=== PATIENT | female | born 1965 | race Caucasian/White ===

== ENCOUNTER 2020-09-10 14:22 | Outpatient (CLI) | payer OTHER, SELFPAY ==
--- NOTE | ~2020-09-10 | MM_ITS ---
EXAMINATION: MM screening spencer BI w roman HISTORY: Screening TECHNIQUE: Craniocaudal and mediolateral oblique 3-D tomosynthesis images were obtained and synthetic 2-D images were generated. CAD analysis was submitted and interpreted. COMPARISON: Comparison to multiple prior studies sequentially, with oldest reviewed study dated 08/03. BREAST PARENCHYMAL COMPOSITION: There are scattered areas of fibroglandular density. FINDINGS: There is no evidence of suspicious mass, calcification, or architectural distortion to sugg est malignancy in either breast. There has been no suspicious interval change. IMPRESSION: 1. No mammographic evidence of malignancy. 2. Recommend routine screening mammography in one year. BI-RADS Category 1: Negative Reviewed, dictated and finalized at location A. NISTRATIVE RECEPTIONIST
== END 2020-09-10 14:23 | disposition home or self-care (01) ==
PROVIDERS: PCP Internal Medicine; Visit Provider Obstetrics & Gynecology
DX: Z12.31 Encounter for screening mammogram for malignant neoplasm of breast (principal)
CPT/HCPCS: 77063; 77067

== ENCOUNTER → 2021-09-30 03:04 | Outpatient (CLI) | payer OTHER, SELFPAY ==
[2021-09-30 21:06] LABS: SARS-CoV-2 RNA PCR Negative
== END ==
PROVIDERS: PCP Internal Medicine; Visit Provider Nurse Practitioner Family
DX: R68.89 Other general symptoms and signs (principal); Z20.822 Contact with and (suspected) exposure to COVID-19
CPT/HCPCS: C9803; U0003; U0005

== ENCOUNTER 2022-07-21 12:26 | Outpatient (CLI) | payer OTHER, SELFPAY ==
--- NOTE | ~2022-07-21 | MM_ITS ---
EXAMINATION: MM screening spencer BI w roman HISTORY: Screening TECHNIQUE: Craniocaudal and mediolateral oblique 3-D tomosynthesis images were obtained and synthetic 2-D images were generated. CAD analysis was submitted and interpreted. COMPARISON: Comparison to multiple prior studies sequentially, with oldest reviewed study dated 08/03. BREAST PARENCHYMAL COMPOSITION: The breasts are almost entirely fatty. FINDINGS: There is no evidence of suspicious mass, calcification, or architectural distortion to sugg est malignancy in either breast. There has been no suspicious interval change. IMPRESSION: 1. No mammographic evidence of malignancy. 2. Recommend routine screening mammography in one year. BI-RADS Category 1: Negative Reviewed, dictated and finalized at location D.
== END 2022-07-21 12:27 | disposition home or self-care (01) ==
PROVIDERS: PCP Internal Medicine; Visit Provider Obstetrics & Gynecology
DX: Z12.31 Encounter for screening mammogram for malignant neoplasm of breast (principal)
CPT/HCPCS: 77063; 77067

== ENCOUNTER 2023-07-21 09:08 | Outpatient (CLI) | payer OTHER, SELFPAY | END 2023-07-21 09:09 | disposition home or self-care (01) | LOC: ANHGOSHLAB 09:10 | PROVIDERS: PCP Family Medicine; Visit Provider Nurse Practitioner | DX: R30.0 Dysuria (principal) | CPT/HCPCS: 87077; 87086; 87186 ==

== ENCOUNTER 2023-07-29 08:58 | Outpatient (CLI) | payer OTHER, SELFPAY ==
[2023-07-29 11:56] LABS: Alanine Aminotransferase 30 U/L (6-35); Albumin Level 4.4 g/dL (3.5-5.1); Alkaline Phosphatase 92 U/L (38-126); Anion Gap 7 mmol/L (8-16); Aspartate Amino Transferase 44 U/L (14-36); Bilirubin,Total 0.8 mg/dL (0.2-1.3); Blood Urea Nitrogen 16 mg/dL (7-17); Calcium 9.3 mg/dL (8.4-10.2); Carbon Dioxide 28 mmol/L (22-30); Chloride 105 mmol/L (98-107); Cholesterol 162 mg/dL (0-200); Estimated Glomerular Filt Rate > 60; Glucose 98 mg/dL (65-110); HDL Direct 48 mg/dL; Potassium 4.2 mmol/L (3.4-5.0); Sodium 140 mmol/L (137-145); Triglycerides 90 mg/dL (<150)
[2023-07-29 12:12] LABS: LDL Cholesterol Direct 89 mg/dL
[2023-07-29 12:23] LABS: Thyroid Stimulating Hormone 0.753 uIU/mL (0.465-4.680)
== END 2023-07-29 08:59 | disposition home or self-care (01) ==
LOC: ANHGOSHLAB 09:00
PROVIDERS: PCP Family Medicine; Visit Provider Family Medicine
DX: E66.9 Obesity, unspecified (principal); R73.03 Prediabetes; Z79.899 Other long term (current) drug therapy; Z23 Encounter for immunization
CPT/HCPCS: 36415; 80053; 80061; 83036; 84443

== ENCOUNTER 2023-12-12 09:48 | Outpatient (CLI) | payer OTHER, SELFPAY ==
[2023-12-12 10:42] LABS: Hematocrit 41.5 % (37.0-47.0); Hemoglobin 14.1 g/dL (12.0-15.0); Mean Corpuscular Hemoglobin 30.5 pg (26-34); Mean Corpuscular Volume 89.6 fl (80-100); Mean Platelet Volume 9.5 fl (7.4-10.4); Platelet Count Result 285 k/mm3 (150-375); Red Blood Count 4.63 M/mm3 (4.2-5.4); Red Cell Distribution Width 12.2 % (11.5-14.5); White Blood Count 6.4 K/mm3 (4.5-10.0)
[2023-12-12 19:55] LABS: Alanine Aminotransferase 20 U/L (6-35); Albumin Level 4.4 g/dL (3.5-5.1); Alkaline Phosphatase 86 U/L (38-126); Anion Gap 5 mmol/L (8-16); Aspartate Amino Transferase 56 U/L (14-36); Bilirubin,Total 0.6 mg/dL (0.2-1.3); Blood Urea Nitrogen 19 mg/dL (7-17); Calcium 9.6 mg/dL (8.4-10.2); Carbon Dioxide 28 mmol/L (22-30); Chloride 104 mmol/L (98-107); Cholesterol 143 mg/dL (0-200); Estimated Glomerular Filt Rate 57; Glucose 85 mg/dL (65-110); HDL Direct 47 mg/dL; Potassium 3.7 mmol/L (3.4-5.0); Sodium 137 mmol/L (137-145); Triglycerides 122 mg/dL (<150)
[2023-12-12 20:06] LABS: LDL Cholesterol Direct 79 mg/dL
== END 2023-12-12 09:49 | disposition home or self-care (01) ==
LOC: ANHGOSHLAB 09:50
PROVIDERS: PCP Family Medicine; Visit Provider Family Medicine
DX: E66.9 Obesity, unspecified (principal); E11.9 Type 2 diabetes mellitus without complications; E78.5 Hyperlipidemia, unspecified; Z79.899 Other long term (current) drug therapy
CPT/HCPCS: 36415; 80053; 80061; 83036; 84443; 85027

== ENCOUNTER 2023-12-30 22:00 | Emergency (ER) | payer OTHER, SELFPAY ==
--- NOTE | ~2023-12-30 | XR_ITS ---
XR hand LT min 3V DATE: 12/31/2023 02:15 INDICATION: Post reduction examination TECHNIQUE: 3 views COMPARISON: 12/30/2023 prereduction examination FINDINGS: There is approximately 29 degrees posterior angulation at the metaphyseal fracture of the p roximal phalanx of the fifth digit, without significant displacement. No other fracture or dislocation. IMPRESSION: Fracture of metaphysis of proximal phalanx of fifth digit Reviewed, dictated and finalized at location A.
--- NOTE | ~2023-12-30 | CT_ITS ---
EXAMINATION: CT cervical spine wo con DATE: 12/30/2023 22:50 INDICATION: fall TECHNIQUE: Computed tomography (CT) of the cervical spine was performed without intravenous contrast. Automated exposure control and iterative reconstruction technique were employed. The dose-length pro duct was 398.57 mGy-cm. COMPARISON: None. FINDINGS: Vertebral Body Alignment: Focal kyphosis centered at C5-6. Trace anterolistheses at C2 3-4 and C4-5, presumably on a degenerative basis. Craniocervical and atlantoaxial alignment: Moderate degenerative change. Alignment intact. Osseous structures/fracture: No evidence of a lytic or blastic process in the visualized spine. No e vidence of acute fracture. Chronic appearing height loss at C5-C7. Cervical soft tissues: The paraspinal soft tissues planes are maintained. Degenerative changes: Multilevel degenerative disc disease, moderate at C5-6. Multilevel severe facet arthropathy. No severe central canal or neural foraminal narrowing. IMPRESSION: No acute fracture or traumatic malalignment in the cervical spine. Reviewed, dictated and finalized at location K.
--- NOTE | ~2023-12-30 | CT_ITS ---
EXAMINATION: CT facial bones wo con DATE: 12/30/2023 22:50 INDICATION: glf . TECHNIQUE: Computed tomography (CT) of the facial bones and maxillofacial region was performed withou t intravenous contrast. Automated exposure control and iterative reconstruction technique were employ ed. The dose-length product was 349.97 mGy-cm. COMPARISON: None. FINDINGS: Soft Tissues: No significant superficial soft tissue swelling. Facial bones: No acute fracture. No lytic or blastic process. Eyes: The globes are intact. The soft tissue planes of the orbits are maintained. Paranasal Sinuses: Minimal right posterior ethmoid opacification, mild mucosal thickening in the inf erior left maxillary sinus, the remaining aerated spaces are clear. Foreign Bodies: No radiopaque foreign bodies. Other Findings: Enlarged bilateral parotid lymph nodes. Dental implants. IMPRESSION: No evidence of acute facial bone fracture. Bilateral parotid gland lymphadenopathy. Reviewed, dictated and finalized at location K.
--- NOTE | ~2023-12-30 | XR_ITS ---
EXAM: XR knee LT 3V DATE: 12/30/2023 22:35 HISTORY: fall . COMPARISON: None available. FINDINGS: Slightly decreased mineralization. No fracture or dislocation. No lytic or blastic lesion. Mild tricompartmental arthritis. Quadriceps enthesopathy. No erosion or periosteal change. Soft tiss ues within normal limits. IMPRESSION: No acute osseous finding in the left knee. Reviewed, dictated and finalized at location K.
--- NOTE | ~2023-12-30 | CT_ITS ---
EXAMINATION: CT brain wo con DATE: 12/30/2023 22:50 INDICATION: fall . TECHNIQUE: Computed tomography (CT) of the head was performed without intravenous contrast. The mA wa s adjusted according to patient size. Iterative reconstruction technique was employed. The dose-lengt h product was 756.67 mGy-cm. COMPARISON: None. FINDINGS: No acute intracranial hemorrhage or extra-axial fluid collection. No hydrocephalus, mass, or herniation. No acute ischemic infarct. Unremarkable dural venous sinus attenuation. No acute osseous abnormality. Minimal right posterior ethmoid sinus opacification, the remaining aerated spaces are clear. Mild atherosclerotic intracranial calcification. Enlarged bilateral parotid lymph nodes, the parotid glands are otherwise normal in appearance. IMPRESSION: No acute intracranial process. Bilateral parotid lymphadenopathy. Reviewed, dictated and finalized at location K.
--- NOTE | ~2023-12-30 | XR_ITS ---
EXAM: XR hand LT min 3V DATE: 12/30/2023 22:35 HISTORY: fall . COMPARISON: None available. FINDINGS: Normal mineralization. Comminuted, intra-articular fracture of the base of the left fifth proximal phalange, with 35 degrees posterior angulation. No lytic or blastic lesion. Joint spaces are maintained. No erosion or periosteal change. Soft tissues within normal limits. IMPRESSION: Comminuted, intra-articular, posteriorly angulated fracture of the base of the left fifth proximal phalange. Reviewed, dictated and finalized at location K.
[2023-12-30 22:07] VITALS: BP 123/75; PULSE 79; RESP 18; TEMP 36.2; O2SAT 100
--- NOTE | 2023-12-30 22:38 | PC.NURSE ---
vrbo ct facial bones with cspine per erp wilder vega
--- NOTE | 2023-12-30 23:15 | ED.FALL ---
HPI - Fall General Chief Complaint: Fall Stated Complaint: fall Time Seen by Provider: 12/30/23 23:05 Source: patient and family () Mode of arrival: ambulatory Limitations: no limitations History of Present Illness HPI Narrative: Patient fell after running into a screen door and now complaining pain. The worst part of her pain is her left hand she also was complaining left knee pain left forehead pain where she had an abrasion. Last tetanus shot <6 mos ago. No loss of consciousness and is not on anticoagulation. She notes that her multiple fingers hyperextended. Related Data Home Medications Medication Instructions Recorded Confirmed dextroamphetamine-amphetamine ER 20 mg PO DAILY 10/29/22 12/16/23 20 mg 24hr capsule,extend release (Adderall XR) vilazodone 20 mg tablet 20 mg PO DAILY 10/29/22 12/16/23 zolpidem 5 mg tablet 5 mg PO QHS PRN 10/29/22 12/16/23 Allergies Allergy/AdvReac Type Severity Reaction Status Date / Time No Known Allergies Allergy Verified 12/30/23 22:00 COUNTS INCLUDE 234 BEDS AT THE [facility] Past Medical History Medical History (Updated 01/01/24 @ 09:16 by Thania Zambrano MD) Right hand dominant Family History Family History Sibling Hypertension Family history of diabetes mellitus in first degree relative Acute myocardial infarction Mother Family history of malignant neoplasm Father Family history of emphysema Alcoholism Other Family history of cardiovascular disease Social History Social History Smoking status: Never smoker Alcohol intake: current Alcohol use details: rare Substance use: never Substance use type: does not use Lack of Transportation: No Lack of Food: Never True Current Housing: I Have Housing Concerned About Future Housing: No Difficulty Paying Gas/Electric Bills: No Difficulty Paying for Meds: No Currently Unemployed: No Education: Bachelor's Degree Difficulty w/ Childcare or Family Care: No Living arrangements: with family Occupation/Education: occupation Gender identity (if verbalized by the patient): Female Agree to blood products: Yes Exam Narrative: GENERAL: Well-appearing, well-nourished, and in no acute distress. HEAD: Normocephalic; abrasion to left forehead, bleeding well controlled EYES: Non injected, non icteric ENT: Nares clear, no rhinorrhea or epistaxis. NECK: Supple. CHEST: Speaking in complete sentences. No respiratory distress. HEART: Regular rate and rhythm. . ABDOMEN: Soft, nondistended. EXTREMITIES: Some edema in left hand; ecchymosis throughout left hand and at base of left 5th digit. Unable to assess capillary refill in nail beds given false nails but brisky refill in the pads of all fingers. Normal tenodesis. Able to demonstrate some flexion and extension though not full fist. SKIN: Warm, dry, no rash. NEURO: No focal deficits. Alert and oriented x3. Sensation intact throughout wrist/hand. PSYCH: Normal mood and affect. Course Vital Signs Vital signs: Vital Signs Temperature 97.1 F L 12/30/23 22:07 Pulse Rate 79 12/30/23 22:07 Respiratory Rate 18 12/30/23 22:07 Blood Pressure 123/75 12/30/23 22:07 Pulse Oximetry 100 12/30/23 22:07 Temperature 98.1 F 12/31/23 03:26 Pulse Rate 67 12/31/23 03:26 Respiratory Rate 15 12/31/23 03:26 Blood Pressure 132/67 12/31/23 03:26 Pulse Oximetry 97 12/31/23 03:26 Procedures Nerve Block Nerve Block 1: Nerve block date: 12/31/23 Local Anesthetic: lidocaine 1% Amount of anesthesia used (mL): 10 Side: left Nerve Blocks: digital (5th digit) Procedure Successful: Yes Patient Tolerated Procedure: well and no complications Complications: none Additional Comments: No pain with procedure Orthopedic Fracture Reduction Fracture #1: Fracture Reducti
[2023-12-31] MEDS: HYDROcodone/acetaminophen (*CRX) 5-325 MG TABLET 1 TAB PO
[2023-12-31] MEDS: ACETAMINOPHEN 325 MG TABLET 650 MG PO (00:01)
[2023-12-31] MEDS: LIDOCAINE HCL 1% LOCAL INJ 10 ML VIAL INFILTRATE (02:39)
[2023-12-31 03:26] VITALS: BP 132/67; PULSE 67; RESP 15; TEMP 36.7; O2SAT 97
== END 2023-12-31 03:27 | disposition home or self-care (01) ==
LOC: ANHED 12-31 01:09
PROVIDERS: Emergency Provider Student in an Organized Health Care Education/Training Program; PCP Family Medicine
DX: S62.617A Displaced fracture of proximal phalanx of left little finger, initial encounter for closed fracture (principal); E04.1 Nontoxic single thyroid nodule; S89.92XA Unspecified injury of left lower leg, initial encounter; S00.81XA Abrasion of other part of head, initial encounter; W22.8XXA Striking against or struck by other objects, initial encounter
CPT/HCPCS: 26725; 70450; 70486; 72125; 73130; 73562; 99285; A4565; A9270

== ENCOUNTER 2024-01-05 08:27 | Outpatient (CLI) | payer OTHER, SELFPAY ==
--- NOTE | ~2024-01-05 | US_ITS ---
EXAMINATION: US thyroid DATE: 01/05/2024 08:42 INDICATION: Nontoxic single thyroid nodule TECHNIQUE: Multiple ultrasound images of the thyroid were obtained. COMPARISON: None. FINDINGS: The right thyroid lobe measures 5.0 x 2.0 x 1.5 cm. The left thyroid lobe measures 5.4 x 1.4 x 1.6 c m. Solid isoechoic 1.4 cm nodule which is wider than tall, with smooth to ill-defined margins and wi thout echogenic foci in the right thyroid. (TI-RADS 3, mildly suspicious , FNA if >=2.5 cm, annual fo llowup is >=1.5 cm). Slightly larger 2.2 cm TI RADS 3 nodule with similar imaging features the inferi or left thyroid. 1.0 cm wider than tall solid hypoechoic nodule with smooth margins at the left side of the thyroid isthmus (TI-RADS 4, moderately suspicious , FNA if >=1.5 cm, annual followup is >=1 cm ). There are a few additional scattered bilateral subcentimeter nodules. IMPRESSION: 1. Multinodular goiter with no nodules meeting criteria for biopsy but a couple for which annual ultr asound follow-up would be recommended.. Reviewed, dictated and finalized at location A. IMPRESSION: 1. Multinodular goiter with no nodules meeting criteria for biopsy but a couple for which annual ultrasound follow-up would be recommended..
== END 2024-01-05 08:28 ==
PROVIDERS: PCP Family Medicine; Visit Provider Family Medicine
DX: E04.2 Nontoxic multinodular goiter (principal)
CPT/HCPCS: 76536

== ENCOUNTER 2024-04-10 11:03 | Outpatient (CLI) | payer BC, SELFPAY ==
[2024-04-10 13:05] LABS: Hematocrit 44.9 % (37.0-47.0); Hemoglobin 15.3 g/dL (12.0-15.0); Mean Corpuscular HGB Conc 34.1 g/dl (32-36); Mean Corpuscular Hemoglobin 31.1 pg (26-34); Mean Corpuscular Volume 91.3 fl (80-100); Mean Platelet Volume 9.7 fl (7.4-10.4); Platelet Count Result 291 k/mm3 (150-375); Red Blood Count 4.92 M/mm3 (4.2-5.4); Red Cell Distribution Width 11.9 % (11.5-14.5); White Blood Count 8.6 K/mm3 (4.5-10.0)
[2024-04-10 13:21] LABS: Alanine Aminotransferase 23 U/L (6-35); Albumin Level 4.6 g/dL (3.5-5.1); Alkaline Phosphatase 74 U/L (38-126); Anion Gap 11 mmol/L (4-12); Aspartate Amino Transferase 55 U/L (14-36); Bilirubin,Total 0.8 mg/dL (0.2-1.3); Blood Urea Nitrogen 15 mg/dL (7-17); Calcium 9.6 mg/dL (8.4-10.2); Carbon Dioxide 26 mmol/L (22-30); Chloride 103 mmol/L (98-107); Cholesterol 181 mg/dL (0-200); Estimated Glomerular Filt Rate > 60; Glucose 97 mg/dL (65-110); HDL Direct 53 mg/dL; Potassium 4.5 mmol/L (3.4-5.0); Sodium 140 mmol/L (137-145); Triglycerides 145 mg/dL (<150)
[2024-04-10 13:37] LABS: LDL Cholesterol Direct 103 mg/dL
[2024-04-10 13:44] LABS: Thyroid Stimulating Hormone 0.529 uIU/mL (0.465-4.680)
[2024-04-11 18:22] LABS: Hemoglobin A1C 4.9 % (<5.7)
== END 2024-04-10 11:04 | disposition home or self-care (01) ==
LOC: ANHGOSHLAB 11:04
PROVIDERS: PCP Family Medicine; Visit Provider Family Medicine
DX: E11.9 Type 2 diabetes mellitus without complications (principal); E78.5 Hyperlipidemia, unspecified; Z79.899 Other long term (current) drug therapy
CPT/HCPCS: 36415; 80053; 80061; 83036; 84443; 85027

== ENCOUNTER 2024-12-06 09:33 | Outpatient (CLI) | payer BC, SELFPAY ==
--- OUTSIDE RECORDS SUMMARY | 2024-12-06 10:31 | XMS_ITS | Clinical Summary ---
Author Organization [facility] Address [address] [place] [address] Phone Care Team Providers Care Weld Technician Name Role Phone Scooter Mcmahon MD Primary Care Provider Allergies Active Allergy Reactions Criticality Noted Date Comments Tramadol Headache Low 09/30/2015 Medications ibuprofen (MOTRIN) 800 mg tablet Take 1 Tab by mouth every 6 hours as needed for Pain, Mild. 50 Tab 0 09/25/20 13 Active venlafaxine (EFFEXOR) 75 mg tablet 2 times daily . 08/22/20 15 Active LORazepam (ATIVAN) 1 mg tablet PRN. 08/15/20 15 Active buPROPion HCl (WELLBUTRIN XL) 300 mg Extended Release 24 hour tablet 08/31/20 15 Active omeprazole (PRILOSEC) 20 mg Capsule, Delayed Release(E.C.) Take 20 mg by mouth daily. Active tirzepatide (Mounjaro) 12.5 mg/0.5 mL Pen Injector Inject 12.5 mg by subcutaneous injection every 7 days. 6 mL 4 5:26 PM GLASS ETCHER HELPER 11/04/19 24 Active vilazodone (VIIBRYD) 20 mg Tablet Take 20 mg by mouth daily. Active atorvastatin (LIPITOR) 10 mg tablet Take 10 mg by mouth daily with supper. Active zolpidem (AMBIEN) 5 mg tablet Take 5 mg by mouth nightly as needed for Insomnia. Active amphetamine-d extroamphetam ine (ADDERALL XR) 20 mg Extended Release 24 hour capsule Take 20 mg by mouth daily in the morning. Active vit86/iron/fo lic acid (NUTRI-TAB OB ORAL) Take by mouth daily. Active tirzepatide (Mounjaro) 10 mg/0.5 mL Pen Injector Inject 10 mg (0.5 mL) subcutaneously once weekly. 2 mL 4 4:25 PM CDT 01/05/20 24 Active HYDROcodone-a cetaminophen (NORCO) 5-325 mg tabletIndicat ions:H/O hand surgery Take 1 Tablet by mouth every 6 hours as needed for moderate pain. Max Daily Amount: 4 Tablets 5 Tablet 4 9:57 AM CDT 01/06/20 24 Active amphetamine-d extroamphetam ine (ADDERALL XR) 20 mg Extended Release 24 hour capsule Take 1 Capsule (20 mg) by mouth daily. Max Daily Amount: 20 mg 30 Capsule 03/22/20 24 Active tirzepatide (Mounjaro) 12.5 mg/0.5 mL Pen Injector Inject 12.5 mg (0.5 mL) subcutaneously weekly 2 mL 1 4 5:26 PM CDT 03/22/20 24 Active tirzepatide (Mounjaro) 15 mg/0.5 mL Pen Injector Inject 15 mg by subcutaneous injection every 7 days. 6 mL 1 4 5:44 PM CDT 06/21/20 24 Active tirzepatide (Mounjaro) 12.5 mg/0.5 mL Pen Injector Inject 12.5 mg (0.5 mL) subcutaneously weekly 6 mL 1 4 5:23 PM CDT 07/26/20 24 Active tirzepatide (Mounjaro) 12.5 mg/0.5 mL Pen Injector Inject 0.5 mL (12.5 mg) by subcutaneous injection every 7 days. 6 mL 1 4 3:11 PM GLASS ETCHER HELPER 08/23/20 24 Active tirzepatide (Mounjaro) 12.5 mg/0.5 mL Pen Injector Inject 0.5 mL (12.5 mg) by subcutaneous injection every 7 days. 6 mL 1 4 12:08 PM GLASS ETCHER HELPER 09/18/20 24 Active tirzepatide (Mounjaro) 12.5 mg/0.5 mL Pen Injector Inject 0.5 mL (12.5 mg) by subcutaneous injection every 7 days. 6 mL 2 5 9:57 AM GLASS ETCHER HELPER 12/03/19 25 Active tirzepatide (Mounjaro) 12.5 mg/0.5 mL Pen Injector Inject 0.5 mL (12.5 mg) by subcutaneous injection every 7 days. 6 mL 1 11:40 AM GLASS ETCHER HELPER 11/02/19 25 2024 Discontinued Active Problems Problem Noted Date Diagnosed Date Triquetral chip fracture 05/05/2017 Ganglion cyst of wrist 09/04/2015 Ganglion cyst of flexor tend on sheath of finger of right hand 09/04/2015 Scar condition and fibrosis of skin 10/31/2013 Breast ptosis 07/11/2013 Other plastic surgery for unacceptable cosmetic appearance 07/11/2013 Encounters Date Type Department Care Team Description 12/04/2024 External Device Data [facility]CTION Provider, Abstract 11/20/2024 External Device Data [facility] Provider, Abstract 10/24/2024 External Device Data [facility] Provider, Abstract 10/23/2024 External Device Data [facility] Provider, Abstract 10/09/2024 External Device Data [facility] Provider, Abstract from Last 3 Months Social History Tobacco Use Types Packs/Day Years Used Date Smoking Tobacco: Never Smokeless Tobacco: Never Tobacco Cessation:Counseling Given: Not Answered Alcohol Use Standard Drinks/Week Comments Yes 0 (1 standard drink = 0.6 oz pur e alcohol) RARE Feeling Safe Answer Date Recorded Are you in a relationship wi th someone who hurts you emotionally and/or physically? Patient unable to answer 01/06/2024 Food Insecurity Answer Date Recorded Social/Environmental Concerns No concerns Transportation Needs Answer Date Record ed Social/Environmental Concerns No concerns Housing Stability Answer Date Recorded Social/Environmental Concerns No concerns Utility Needs Answer Date Recorded Social/Environmental Concerns No concerns Comments No Sex and Gender Information Value Date Recorded Sex Assigned at Not on file Legal Sex Female 11:34 AM CDT Gender Identity Not on file Sexual Orientation Not on file Occupation Industry Job Start Date Job End Date Not on file Not on file Not on file Not on file Last Filed Vital Signs Vital Sign Reading Time Taken Comments Blood Pressure 108/70 01/06/2024 9:11 AM CDT Pulse 71 01/06/2024 9:11 AM CDT Temperature 36.1 C (97 F) 01/06/2024 9:11 AM CDT Respiratory Rate 16 01/06/2024 9:11 AM CDT Oxygen Saturation 100% 01/06/2024 9:11 AM CDT Inhaled Oxygen Concentration - - Weight 79.4 kg (175 lb) 02/02/2024 3:45 PM CDT Height 170.2 cm (5' 7 ) 02/02/2024 3:45 PM CDT Body Mass Index 27.41 02/02/2024 3:45 PM CDT Plan of Treatment Health Maintenance Due Date Last Done Comments Pre-Diabetes and Diabetes Screening 1966 DTAP/TDAP/TD VACCINES (1 - Tdap) 1985 HEPATITIS B VACCINES (1 of 3 - 19+ 3-dose series) 1985 CERVICAL CANCER SCREENING 1996 BREAST CANCER SCREENING 2006 COLORECTAL SCREENING 2011 Colorectal Cancer Screening 2011 FIT-DNA Q 3 years 2011 FIT/FOBT Q 1 year 2011 Flex Sig/CT Colonography Q 5 years 2011 ZOSTER VACCINE (1 of 2) 2016 INFLUENZA VACCINE (#1) 2024 PNEUMOCOCCAL VACCINE 0-49 YEARS Aged Out No longer eligible based on patient's age to complete this topic Medical Devices Implanted Type Area Gamer Device Identifier Shelf Expiration Date Model / Serial / Lot Wire K Trocar Sgl [id number] - [id number] Implanted:Qty: 2 on 01/06/2024 by Crispin Phan MD at [facility] Wire Left: Finger [employer] [facility] [id number] / / 2 JAN 03, 2024 Top Let [employer] Insurance BCBS BLUE ACCESS/TRUE BLUE PPO RX [employer] Commercial Advance Directives For more information, please contact: [phone] * Full Code (Latest Code Status on File) Date Activated Date Inactivated Comments 09/09/2015 10:24 AM 09/09/2015 5:57 PM * Full Code Date Activated Date Inactivated Comments 08/17/2013 12:29 PM 08/18/2013 2:06 PM * Full Code Date Activated Date Inactivated Comments 08/17/2013 8:08 AM 08/17/2013 12:29 PM * Full Code Date Activated Date Inactivated Comments 08/17/2013 6:24 AM 08/17/2013 8:08 AM Care Teams Weld Technician Relationship Specialty Start Date End Date Scooter Mcmahon MD PCP - General Internal Medicine 05/05/17
--- OUTSIDE RECORDS SUMMARY | 2024-12-06 10:31 | XMS_ITS | Encounter Summary ---
Author Organization [employer] [facility] Address [address] [place] [address] Care Team Providers Care Lieutenant Fire Fighter Name Role Phone Scooter Mcmahon MD Primary Care Provider Encounter Details Date Type Department Care Team (Late st Contact Info) Description 12/04/2024 External Device Data [facility] Provider, Abstract NO ADDRESS ON FILE Social History Tobacco Use Types Packs/Day Years Used Date Smoking Tobacco: Never Smokeless Tobacco: Never Alcohol Use Standard Drinks/Week Comments Yes 0 [...] file Not on file Not on file documented as of this encounter Plan of Treatment Not on file documented as of this encounter Visit Diagnoses Not on filedocumented in this encounter Care Teams Lieutenant Fire Fighter Relationship Specialty Start Date End Date Scooter Mcmahon MD PCP - General Internal Medicine 05/05/17 documented as of this encounter
[2024-12-06 12:38] LABS: Hematocrit 42.2 % (37.0-47.0); Hemoglobin 14.3 g/dL (12.0-15.0); Mean Corpuscular HGB Conc 33.9 g/dl (32-36); Mean Corpuscular Hemoglobin 30.6 pg (26-34); Mean Corpuscular Volume 90.2 fl (80-100); Mean Platelet Volume 9.8 fl (7.4-10.4); Platelet Count Result 316 k/mm3 (150-375); Red Blood Count 4.68 M/mm3 (4.2-5.4); Red Cell Distribution Width 12.2 % (11.5-14.5); White Blood Count 7.2 K/mm3 (4.5-10.0)
[2024-12-06 13:45] LABS: Alanine Aminotransferase 20 U/L (6-35); Albumin Level 4.7 g/dL (3.5-5.1); Alkaline Phosphatase 87 U/L (38-126); Anion Gap 10 mmol/L (4-12); Aspartate Amino Transferase 44 U/L (14-36); Bilirubin,Total 0.9 mg/dL (0.2-1.3); Blood Urea Nitrogen 11 mg/dL (7-17); Calcium 9.8 mg/dL (8.4-10.2); Carbon Dioxide 27 mmol/L (22-30); Chloride 103 mmol/L (98-107); Cholesterol 141 mg/dL (0-200); Estimated Glomerular Filt Rate > 60; Glucose 144 mg/dL (65-110); HDL Direct 54 mg/dL; Potassium 3.4 mmol/L (3.4-5.0); Sodium 140 mmol/L (137-145); Triglycerides 141 mg/dL (<150)
[2024-12-06 13:54] LABS: Free T4 Free Thyroxine 1.08 ng/dL (0.78-2.19)
[2024-12-06 13:56] LABS: LDL Cholesterol Direct 63 mg/dL
[2024-12-06 14:22] LABS: Hemoglobin A1C 5.1 % (<5.7)
[2024-12-06 14:24] LABS: Thyroid Stimulating Hormone 0.552 uIU/mL (0.465-4.680)
== END 2024-12-06 09:34 | disposition home or self-care (01) ==
LOC: ANHGOSHLAB 09:34
PROVIDERS: PCP Family Medicine; Visit Provider Family Medicine
DX: E78.5 Hyperlipidemia, unspecified (principal); E11.9 Type 2 diabetes mellitus without complications; E55.9 Vitamin D deficiency, unspecified; Z79.899 Other long term (current) drug therapy; R79.89 Other specified abnormal findings of blood chemistry
CPT/HCPCS: 36415; 80053; 80061; 82652; 83036; 84439; 84443; 85027

== ENCOUNTER 2025-01-02 01:15 | Day surgery (SDC) | payer BC, SELFPAY ==
[2024-12-24 10:40] VITALS: BMI 25.9
--- OUTSIDE RECORDS SUMMARY | 2025-01-02 01:20 | XMS_ITS | Clinical Summary ---
Author Organization [facility] Address [address] [place] [address] Phone Care Team Providers Care Damage Inside Adjuster Name Role Phone Scooter Mcmahon MD Primary Care Provider Allergies Active Allergy Reactions Criticality Noted Date Comments Tramadol Headache Low 09/30/2015 Medications ibuprofen (MOTRIN) 800 mg tablet Take 1 Tab by mouth every 6 hours as needed for Pain, Mild. 50 Tab 0 3 Active venlafaxine (EFFEXOR) 75 mg tablet 2 times daily . 5 Active LORazepam (ATIVAN) 1 mg tablet PRN. 5 Active buPROPion HCl (WELLBUTRIN XL) 300 mg Extended Release 24 hour tablet 5 Active omeprazole (PRILOSEC) 20 mg Capsule, Delayed Release(E.C.) Take 20 mg by mouth daily. Active tirzepatide (Mounjaro) 12.5 mg/0.5 mL Pen Injector Inject 12.5 mg by subcutaneous injection every 7 days. 6 mL 11/04/2023 5:26 PM REFRIGERATION HOUSEMAN 4 Active vilazodone (VIIBRYD) 20 mg Tablet Take 20 mg by mouth daily. Active atorvastatin (LIPITOR) 10 mg tablet Take 10 mg by mouth daily with supper. Active zolpidem (AMBIEN) 5 mg tablet Take 5 mg by mouth nightly as needed for Insomnia. Active amphetamine-de xtroamphetamin e (ADDERALL XR) 20 mg Extended Release 24 hour capsule Take 20 mg by mouth daily in the morning. Active vit86/iron/fol ic acid (NUTRI-TAB OB ORAL) Take by mouth daily. Active tirzepatide (Mounjaro) 10 mg/0.5 mL Pen Injector Inject 10 mg (0.5 mL) subcutaneously once weekly. 2 mL 01/06/2024 4:25 PM CDT 4 Active HYDROcodone-ac etaminophen (NORCO) 5-325 mg tabletIndicati ons:H/O hand surgery Take 1 Tablet by mouth every 6 hours as needed for moderate pain. Max Daily Amount: 4 Tablets 5 Tablet 01/06/2024 9:57 AM CDT 4 Active amphetamine-de xtroamphetamin e (ADDERALL XR) 20 mg Extended Release 24 hour capsule Take 1 Capsule (20 mg) by mouth daily. Max Daily Amount: 20 mg 30 Capsule 4 Active tirzepatide (Mounjaro) 12.5 mg/0.5 mL Pen Injector Inject 12.5 mg (0.5 mL) subcutaneously weekly 2 mL 1 03/22/2024 5:26 PM CDT 4 Active tirzepatide (Mounjaro) 15 mg/0.5 mL Pen Injector Inject 15 mg by subcutaneous injection every 7 days. 6 mL 1 06/22/2024 5:44 PM CDT 4 Active tirzepatide (Mounjaro) 12.5 mg/0.5 mL Pen Injector Inject 12.5 mg (0.5 mL) subcutaneously weekly 6 mL 1 07/27/2024 5:23 PM CDT 4 Active tirzepatide (Mounjaro) 12.5 mg/0.5 mL Pen Injector Inject 0.5 mL (12.5 mg) by subcutaneous injection every 7 days. 6 mL 1 08/24/2024 3:11 PM REFRIGERATION HOUSEMAN 4 Active tirzepatide (Mounjaro) 12.5 mg/0.5 mL Pen Injector Inject 0.5 mL (12.5 mg) by subcutaneous injection every 7 days. 6 mL 1 09/22/2024 12:08 PM REFRIGERATION HOUSEMAN 4 Active tirzepatide (Mounjaro) 12.5 mg/0.5 mL Pen Injector Inject 0.5 mL (12.5 mg) by subcutaneous injection every 7 days. 6 mL 2 12/06/2024 9:57 AM REFRIGERATION HOUSEMAN 5 Active Active Problems Problem Noted Date Diagnosed Date Triquetral chip fracture 05/05/2017 Ganglion cyst of wrist 09/04/2015 Ganglion cyst of flexor tend on sheath of finger of right hand 09/04/2015 Scar condition and fibrosis of skin 10/31/2013 Breast ptosis 07/11/2013 Other plastic surgery for unacceptable cosmetic appearance 07/11/2013 Encounters Date Type Department Care Team Description 12/19/2024 External Device Data STL ABSTRACTION Provider, Abstract 12/11/2024 External Device Data STL ABSTRACTION Provider, Abstract 12/11/2024 External Device Data STL ABSTRACTION Provider, Abstract 12/08/2024 External Device Data STL ABSTRACTION Provider, Abstract 12/07/2024 External Device Data STL ABSTRACTION Provider, Abstract 12/04/2024 External Device Data STL ABSTRACTION Provider, [...] of 3 - 19+ 3-dose series) 1985 PAP SMEAR 1987 CERVICAL CANCER SCREENING 1996 HPV/Cotest (30-65) 1996 PAP SMEAR 1996 BREAST CANCER SCREENING 2006 COLORECTAL SCREENING 2011 Colorectal Cancer Screening 2011 FIT-DNA Q 3 years 2011 FIT/FOBT Q 1 year 2011 Flex Sig/CT Colonography Q 5 years 2011 ZOSTER VACCINE (1 of 2) 2016 INFLUENZA VACCINE (#1) 2024 PNEUMOCOCCAL VACCINE 0-49 YEARS Aged Out No longer eligible based on patient's age to complete this topic Medical Devices Implanted Type Area Incinerator Plant Supervisor Device Identifier Shelf Expiration Date Model / Serial / Lot Wire K Trocar Sgl .[id number] - [id number] Implanted:Qty: 2 on 01/06/2024 by Crispin Phan MD at [facility] Wire Left: Finger BRASSELER [facility] [id number] / / 2 JAN 03, 2024 Top Let [employer] Insurance BCBS BLUE ACCESS/TRUE BLUE PPO RX PRIME THERAPEUT[employer] Commercial Advance Directives For more information, please contact: [phone] * Full Code (Latest Code Status on File) Date Activated Date Inactivated Comments 09/09/2015 10:24 AM 09/09/2015 5:57 PM * Full Code Date Activated Date Inactivated Comments 08/17/2013 12:29 PM 08/18/2013 2:06 PM * Full Code Date Activated Date Inactivated Comments 08/17/2013 8:08 AM 08/17/2013 12:29 PM * Full Code Date Activated Date Inactivated Comments 08/17/2013 6:24 AM 08/17/2013 8:08 AM Care Teams Damage Inside Adjuster Relationship Specialty Start Date End Date Scooter Mcmahon MD PCP - General Internal Medicine 05/05/17
[2025-01-02 08:13] VITALS: BP 105/72; PULSE 72; RESP 18; TEMP 36.3; O2SAT 100
--- NOTE | 2025-01-02 08:21 | WPDANESEPPF ---
Anes - Initial Pre Proc Eval Procedure: Operation Date: 01/02/25 09:30 Proposed Procedures p Colonoscopy - Gilbert Floyd MD Date/Time: 01/02/25 08:21 Surgeon: Gilbert Floyd MD Pre Op Diagnosis: personal hx of colon polyps Patient Data Age: 59 Gender: F Height: 1.7 m Weight: 77.5 kg Last Vital Signs Temp 36.3 C L 01/02/25 08:13 Pulse 72 01/02/25 08:13 Resp 18 01/02/25 08:13 BP 105/72 01/02/25 08:13 O2 Del Method Room Air 01/02/25 08:13 Allergies Allergy/AdvReac Type Severity Reaction Status Date / Time No Known Allergies Allergy Verified 01/02/25 08:11 Home Medications ?Medication ?Instructions ?Recorded ?Confirmed ?Type zolpidem 5 mg tablet 5 mg PO QHS PRN insomnia #90 tabs 08/13/24 12/24/24 Rx vilazodone 20 mg tablet See Rx Instructions .Route 09/20/24 01/02/25 Rx .COMPLEX #90 tabs atorvastatin 20 mg tablet 20 mg PO QHS #90 tabs 10/11/24 01/02/25 Rx omeprazole 20 mg capsule,delayed 20 mg PO DAILY #90 caps 10/11/24 01/02/25 Rx release tirzepatide 12.5 mg/0.5 mL 12.5 mg (0.5 mL) subcut WEEKLY #6 12/02/24 01/02/25 Rx subcutaneous pen injector mL ondansetron HCl 4 mg tablet 4 mg PO Q6H PRN nausea and 12/07/24 12/24/24 Rx vomiting #20 tabs dextroamphetamine-amphetamine ER 20 mg PO DAILY #30 caps 12/18/24 01/02/25 Rx 20 mg 24hr capsule,extend release (Adderall XR) lactobacillus combination no.4 3 3,000 mmu cells PO DAILY 12/24/24 01/02/25 History billion cell capsule (Probiotic) Patient hx anesthesia problems: none Family hx anesthesia problems: none Results Review: All pre-operative results and documents have been reviewed as part of the pre-operative evaluation. FOR[facility]LY [facility] Past Medical History Medical History (Updated 01/01/25 @ 13:40 by Shelton Guillermo DO) Diabetes Hyperlipemia MDD (major depressive disorder) ADHD Right hand dominant Family History Family History Sibling Hypertension Family history of diabetes mellitus in first degree relative Acute myocardial infarction Mother Family history of malignant neoplasm Father Family history of emphysema Alcoholism Other Family history of cardiovascular disease Social History Social History Smoking status: Never smoker Alcohol intake: never Alcohol use details: rare Substance use: never Substance use type: does not use Lack of Transportation: No Lack of Food: Never True Current Housing: I Have Housing Concerned About Future Housing: No Difficulty Paying Gas/Electric Bills: No Difficulty Paying for Meds: No Currently Unemployed: No Education: Bachelor's Degree Difficulty w/ Childcare or Family Care: No Living arrangements: with family Occupation/Education: occupation Gender identity (if verbalized by the patient): Female Agree to blood products: Yes Anes - Eval Final PreProcedure Day of Procedure 01/02/25 08:21 Patient weight: overweight Heart: regular rate and rhythm Lungs: clear to auscultation Airway: Mallampati scale class II Neurological: alert and oriented Last oral intake: >/= 8 hours ASA classification: III Emergent: no Anesthetic plan: proceed Anesthesia type and monitoring: general GIVS and standard monitoring Results Review: All pre-operative results and documents have been reviewed as part of the pre-operative evaluation. Informed Consent: The patient's anesthetic plan and its attendant risks and benefits were discussed with the patient/family/POA. Questions were solicited and answers provided to the satisfaction of the patient/family/POA.
[2025-01-02] MEDS: LACTATED RINGERS 1,000 ML 150 ML IV CONT (08:28)
[2025-01-02 08:34] LABS: Glucose Point of Care 106 mg/dl (65-105)
--- NOTE | 2025-01-02 09:21 | PM.IMHP ---
H&P: HPI History of Present Illness Date/Time: 01/02/25 09:21 Chief Complaint: History of colon polyps Narrative: The patient has a history of colonic polyps, the last colonoscopy was 5 years ago. Review of Systems Review of Systems: All systems reviewed & are unremarkable except as noted in HPI and below PMFSH Past Medical History Medical History (Updated 01/01/25 @ 13:40 by Shelton Guillermo DO) Diabetes Hyperlipemia MDD (major depressive disorder) ADHD Right hand dominant Family History Family History Sibling Hypertension Family history of diabetes mellitus in first degree relative Acute myocardial infarction Mother Family history of malignant neoplasm Father Family history of emphysema Alcoholism Other Family history of cardiovascular disease Social History Social History Smoking status: Never smoker Alcohol intake: never Alcohol use details: rare Substance use: never Substance use type: does not use Lack of Transportation: No Lack of Food: Never True Current Housing: I Have Housing Concerned About Future Housing: No Difficulty Paying Gas/Electric Bills: No Difficulty Paying for Meds: No Currently Unemployed: No Education: Bachelor's Degree Difficulty w/ Childcare or Family Care: No Living arrangements: with family Occupation/Education: occupation Gender identity (if verbalized by the patient): Female Agree to blood products: Yes Meds Home Medications and Allergies Home Medications ?Medication ?Instructions ?Recorded ?Confirmed ?Type zolpidem 5 mg tablet 5 mg PO QHS PRN insomnia #90 tabs 08/13/24 12/24/24 Rx vilazodone 20 mg tablet See Rx Instructions .Route 09/20/24 01/02/25 Rx .COMPLEX #90 tabs atorvastatin 20 mg tablet 20 mg PO QHS #90 tabs 10/11/24 01/02/25 Rx omeprazole 20 mg capsule,delayed 20 mg PO DAILY #90 caps 10/11/24 01/02/25 Rx release tirzepatide 12.5 mg/0.5 mL 12.5 mg (0.5 mL) subcut WEEKLY #6 12/02/24 01/02/25 Rx subcutaneous pen injector mL ondansetron HCl 4 mg tablet 4 mg PO Q6H PRN nausea and 12/07/24 12/24/24 Rx vomiting #20 tabs dextroamphetamine-amphetamine ER 20 mg PO DAILY #30 caps 12/18/24 01/02/25 Rx 20 mg 24hr capsule,extend release (Adderall XR) lactobacillus combination no.4 3 3,000 mmu cells PO DAILY 12/24/24 01/02/25 History billion cell capsule (Probiotic) Allergies Allergy/AdvReac Type Severity Reaction Status Date / Time No Known Allergies Allergy Verified 01/02/25 08:11 Vital Signs Vital Signs - 24 hr 01/02/25 08:13 Temperature 97.3 F L Pulse Rate 72 Respiratory Rate 18 Blood Pressure 105/72 Pulse Oximetry 100 Oxygen Delivery Room Air Exam Const: General: cooperative and healthy appearing Resp: Effort & Inspection: normal respiratory effort and able to speak in complete sentences Auscultation: clear to auscultation bilaterally Cardio: Rate: regular rate Rhythm: regular rhythm GI: Inspection: normal to inspection GI Palp: No No hepatosplenomegaly present Auscultation: normal bowel sounds Rectal Exam: deferred Skin: General skin exam: normal color Psych: Appearance: grossly normal Mental Status: mental status grossly normal Assessment and Plan Assessment and plan (1) History of colon polyps: Code(s): Z86.010 - Personal history of colon polyps Status: Acute Assessment and Plan: The patient is deemed a good candidate for the procedure. Consent signed. Will proceed.
[2025-01-02 09:45] VITALS: BP 104/62; PULSE 85; RESP 15; O2SAT 100
[2025-01-02 09:55] VITALS: BP 103/66; PULSE 76; RESP 14; O2SAT 100
[2025-01-02 10:04] VITALS: BP 99/66; PULSE 64; RESP 24; O2SAT 100
== END 2025-01-02 10:14 | disposition home or self-care (01) ==
PROVIDERS: PCP Family Medicine; Referring Provider Family Medicine; Visit Provider Internal Medicine Gastroenterology
PROC: 0DJD8ZZ Inspection of Lower Intestinal Tract, Via Natural or Artificial Opening Endoscopic (ICD-10-PCS; CPT 45378; principal; 2025-01-02 09:30)
DX: Z12.11 Encounter for screening for malignant neoplasm of colon (principal); K57.30 Diverticulosis of large intestine without perforation or abscess without bleeding; E11.9 Type 2 diabetes mellitus without complications; E78.5 Hyperlipidemia, unspecified; F32.9 Major depressive disorder, single episode, unspecified; F90.9 Attention-deficit hyperactivity disorder, unspecified type; Z79.85 Long-term (current) use of injectable non-insulin antidiabetic drugs; Z86.0100 Personal history of colon polyps, unspecified; Z80.9 Family history of malignant neoplasm, unspecified; Z82.49 Family history of ischemic heart disease and other diseases of the circulatory system
CPT/HCPCS: 45378; 82948; J2003; J2704; J7120

== ENCOUNTER 2025-01-16 12:52 | Outpatient (CLI) | payer BC, SELFPAY ==
--- NOTE | ~2025-01-16 | US_ITS ---
EXAMINATION: US thyroid DATE: 01/16/2025 13:12 INDICATION: Nontoxic thyroid nodule TECHNIQUE: Multiple ultrasound images of the thyroid were obtained. COMPARISON: 01/05/2024 FINDINGS: The right thyroid lobe measures 5.3 x 2.2 x 1.9 cm. Within the right lobe of the thyroid gland is a 14 x 9 x 12 mm nodule: Composition - spongiform Echogenicity -hyperechoic and isoechoic (1) Shape - wider than tall Margin -ill-defined Echogenic foci - none. = TR 1, benign, no FNA. The left thyroid lobe measures 5.7 x 1.5 x 1.6 cm. Within the left lobe of the thyroid gland is a 16 x 9 x 14 mm nodule: Composition - spongiform Echogenicity -hypoechoic (1) Shape - wider than tall Margin -ill-defined Echogenic foci - none. = TR 1, benign, no FNA. Within the left lobe of the thyroid gland/isthmus to the left of midline is a 13 x 5 x 8 mm nodule: Composition - spongiform Echogenicity -hyperechoic and isoechoic (1) Shape - wider than tall Margin - smooth Echogenic foci - none. = TR 1, benign, no FNA. Within the left lobe of the thyroid gland is a 9 x 5 x 8 mm nodule: Composition -mixed cystic and solid (1) Echogenicity -hypoechoic (1) Shape - wider than tall Margin - smooth Echogenic foci - none. = TR 2, Not suspicious, no FNA The isthmus measures 0.2cm in anterior to posterior dimension. There is otherwise coarse echotexture and mixed echogenicity throughout the remainder of the thyroid gland. No discrete nodules identified. Normal vascular flow is present. IMPRESSION: Multiple TR 1 and TR 2 nodules within the bilateral lobes of the thyroid gland for which no FNA is re commended. Follow-up is not recommended, but may be performed. Reviewed, dictated and finalized at location A. IMPRESSION: Multiple TR 1 and TR 2 nodules within the bilateral lobes of the thyroid gland for which no FNA is recommended. Follow-up is not recommended, but may be performed.
== END 2025-01-16 12:53 | disposition home or self-care (01) ==
PROVIDERS: PCP Family Medicine; Visit Provider Family Medicine
DX: E04.2 Nontoxic multinodular goiter (principal)
CPT/HCPCS: 76536

== ENCOUNTER 2025-04-30 15:50 | Outpatient (CLI) | payer BC, SELFPAY ==
--- NOTE | ~2025-04-30 | MM_ITS ---
EXAMINATION: MM screening spencer BI w roman HISTORY: Screening TECHNIQUE: Craniocaudal and mediolateral oblique 3-D tomosynthesis images were obtained and synthetic 2-D images were generated. CAD analysis was submitted and interpreted. COMPARISON: Comparison to multiple prior studies sequentially, with oldest reviewed study dated 08/04. BREAST PARENCHYMAL COMPOSITION: Not Dense: The breasts are almost entirely fatty. FINDINGS: There is no evidence of suspicious mass, calcification, or architectural distortion to sugg est malignancy in either breast. There has been no suspicious interval change. IMPRESSION: 1. No mammographic evidence of malignancy. 2. Recommend routine screening mammography in one year. BI-RADS Category 1: Negative Reviewed, dictated and finalized at location B.
--- OUTSIDE RECORDS SUMMARY | 2025-04-30 15:53 | XMS_ITS | Clinical Summary ---
Author Organization [facility] Address [address] [place] [address] Phone Care Team Providers Care House Mover Name Role Phone Scooter Mcmahon MD Primary [...] 7 days. 6 mL 11/04/2023 5:26 PM AUTOMATION CLERK 4 Active vilazodone (VIIBRYD) 20 mg Tablet [...] days. 6 mL 1 08/24/2024 3:11 PM AUTOMATION CLERK 4 Active tirzepatide (Mounjaro) 12.5 mg/0.5 mL Pen Injector Inject 0.5 mL (12.5 mg) by subcutaneous injection every 7 days. 6 mL 1 09/22/2024 12:08 PM AUTOMATION CLERK 4 Active tirzepatide (Mounjaro) 12.5 mg/0.5 mL Pen Injector Inject 0.5 mL (12.5 mg) by subcutaneous injection every 7 days. 6 mL 2 12/06/2024 9:57 AM AUTOMATION CLERK 5 Active tirzepatide (Mounjaro) 15 mg/0.5 mL Pen Injector Inject 0.5 mL (15 mg) by subcutaneous injection every 7 days. 2 mL 5 01/04/2025 3:40 PM CDT 5 Active tirzepatide (Mounjaro) 15 mg/0.5 mL Pen Injector Inject 15 mg (0.5 mL) subcutaneously weekly 2 mL 5 04/10/2025 12:50 PM CDT 5 Active Active Problems Problem Noted Date Diagnosed Date Triquetral chip fracture 05/05/2017 Ganglion cyst of wrist 09/04/2015 Ganglion cyst of flexor tend on sheath of finger of right hand 09/04/2015 Scar condition and fibrosis of skin 10/31/2013 Breast ptosis 07/11/2013 Other plastic surgery for unacceptable cosmetic appearance 07/11/2013 Encounters Date Type Department Care Team Description 04/17/2025 External Device Data STL ABSTRACTION Provider, Abstract 04/16/2025 External Device Data STL ABSTRACTION Provider, Abstract 03/19/2025 External Device Data STL ABSTRACTION Provider, Abstract 02/21/2025 External Device Data STL ABSTRACTION Provider, Abstract 02/19/2025 External Device Data STL ABSTRACTION Provider, Abstract 02/05/2025 External Device Data STL ABSTRACTION Provider, Abstract from Last 3 Months Social History Tobacco Use Types Packs/Day Years Used Date Smoking Tobacco: Never Smokeless Tobacco: Never Tobacco Cessation:Counseling Given: Not Answered Alcohol Use Standard Drinks/Week Comments Yes 0 (1 standard drink = 0.6 oz pur e alcohol) RARE Comments No Sex and Gender Information Value [...] 3:45 PM CDT Height 170.2 cm (5' 7) 02/02/2024 3:45 PM CDT Body Mass Index 27.41 02/02/2024 3:45 PM CDT Plan of Treatment Health Maintenance Due Date Last Done Comments DTAP/TDAP/TD VACCINES (1 - Tdap) 1985 HEPATITIS B VACCINES (1 of 3 - 19+ 3-dose series) 10/03 HPV/Cotest (21-29) 1987 CERVICAL CANCER SCREENING 1996 HPV/Cotest (30-65) 1996 PAP SMEAR 1996 BREAST CANCER SCREENING 2006 COLORECTAL SCREENING 2011 Colorectal Cancer Screening 2011 FIT-DNA Q 3 years 2011 FIT/FOBT Q 1 year 2011 Flex Sig/CT Colonography Q 5 years 2011 ZOSTER VACCINE (1 of 2) 2016 INFLUENZA VACCINE (#1) 2025 Medical Devices Implanted Type Area Consumer Loan Manager Device Identifier Shelf Expiration Date Model / Serial / Lot Wire K Trocar Sgl .[id number] - [id number] Implanted:Qty: 2 on 01/06/2024 by Crispin Phan MD at [facility] Wire Left: Finger BRASSELER [facility] [id number] / / 2 JAN 03, 2024 Top Let [employer] Insurance [place] BLUE ACCESS/TRUE BLUE PPO RX PRIME THERAPEUTICS Commercial Advance Directives For more information, please contact: [phone] * Full Code (Latest Code Status on File) Date Activated Date Inactivated Comments 09/09/2015 10:24 AM 09/09/2015 5:57 PM * Full Code Date Activated Date Inactivated Comments 08/17/2013 12:29 PM 08/18/2013 2:06 PM * Full Code Date Activated Date Inactivated Comments 08/17/2013 8:08 AM 08/17/2013 12:29 PM * Full Code Date Activated Date Inactivated Comments 08/17/2013 6:24 AM 08/17/2013 8:08 AM Care Teams House Mover Relationship Specialty Start Date End Date Scooter Mcmahon MD PCP - General Internal Medicine 05/05/17
== END 2025-04-30 15:51 | disposition home or self-care (01) ==
LOC: ANHIMG 15:51
PROVIDERS: PCP Family Medicine; Visit Provider Family Medicine
DX: Z12.31 Encounter for screening mammogram for malignant neoplasm of breast (principal)
CPT/HCPCS: 77063; 77067

== ENCOUNTER 2025-06-06 13:54 | Outpatient (NON) | payer BC, SELFPAY ==
--- OUTSIDE RECORDS SUMMARY | 2025-06-06 14:06 | XMS_ITS | Clinical Summary ---
Author Organization [facility] Address [address] [place] [address] Phone Care Team Providers Care Rubber Roller Grinder Name Role Phone Scooter Mcmahon MD Primary [...] 7 days. 6 mL 11/04/2023 5:26 PM RELIABILITY ENGINEER 4 Active vilazodone (VIIBRYD) 20 mg Tablet [...] days. 6 mL 1 08/24/2024 3:11 PM RELIABILITY ENGINEER 4 Active tirzepatide (Mounjaro) 12.5 mg/0.5 mL Pen Injector Inject 0.5 mL (12.5 mg) by subcutaneous injection every 7 days. 6 mL 1 09/22/2024 12:08 PM RELIABILITY ENGINEER 4 Active tirzepatide (Mounjaro) 12.5 mg/0.5 mL Pen Injector Inject 0.5 mL (12.5 mg) by subcutaneous injection every 7 days. 6 mL 2 12/06/2024 9:57 AM RELIABILITY ENGINEER 5 Active tirzepatide (Mounjaro) 15 mg/0.5 mL Pen Injector Inject 0.5 mL (15 mg) by subcutaneous injection every 7 days. 2 mL 5 01/04/2025 3:40 PM CDT 5 Active tirzepatide (Mounjaro) 15 mg/0.5 mL Pen Injector Inject 15 mg (0.5 mL) subcutaneously weekly 2 mL 5 05/11/2025 10:10 AM CDT 5 Active Active Problems Problem Noted Date Diagnosed Date Triquetral chip fracture 05/05/2017 Ganglion cyst of wrist 09/04/2015 Ganglion cyst of flexor tend on sheath of finger of right hand 09/04/2015 Scar condition and fibrosis of skin 10/31/2013 Breast ptosis 07/11/2013 Other plastic surgery for unacceptable cosmetic appearance 07/11/2013 Encounters Date Type Department Care Team Description 05/07/2025 External Device Data STL ABSTRACTION Provider, Abstract 04/17/2025 External Device Data STL ABSTRACTION Provider, [...] (#1) 2025 Medical Devices Implanted Type Area Tumbling And Rolling Supervisor Device Identifier Shelf Expiration Date Model / Serial / Lot Wire K Trocar Sgl .[id number] - [id number] Implanted:Qty: 2 on 01/06/2024 by Crispin Phan MD at [facility] Wire Left: Finger BRASSELER [facility] [id number] / / 2 JAN 03, 2024 Top Let [employer] Insurance BCBS BLUE ACCESS/TRUE BLUE PPO RX PRIME [employer]ERAPEUT[employer] Commercial Advance Directives For more information, please contact: [phone] * Full Code (Latest Code Status on File) Date Activated Date Inactivated Comments 09/09/2015 10:24 AM 09/09/2015 5:57 PM * Full Code Date Activated Date Inactivated Comments 08/17/2013 12:29 PM 08/18/2013 2:06 PM * Full Code Date Activated Date Inactivated Comments 08/17/2013 8:08 AM 08/17/2013 12:29 PM * Full Code Date Activated Date Inactivated Comments 08/17/2013 6:24 AM 08/17/2013 8:08 AM Care Teams Rubber Roller Grinder Relationship Specialty Start Date End Date Scooter Mcmahon MD PCP - General Internal Medicine 05/05/17
== END 2025-06-06 13:55 | disposition home or self-care (01) ==
LOC: ANHGOSHLAB 13:54
PROVIDERS: PCP Family Medicine; Visit Provider Family Medicine
DX: R30.0 Dysuria (principal)
CPT/HCPCS: 87086